=== PATIENT | female | born 1955 | race Caucasian/White ===

== ENCOUNTER → 2017-12-25 | Outpatient (CLI) | payer BC ==
[~2017-12-25] MED LIST: ASPIRIN EC81 M1 PO; COLESTIPOL HCL1 G1 PO; DARIFENACIN ER15 MG PO; ESTRACE2 MG PO; LEXAPRO20 MG PO; MACROBID 100 M100 M1 PO; PROZAC20 MG PO; SIMVASTATIN40 MG PO; VERAPAMIL ER240 M1 PO; VIMOVO 375-201 EACH PO; ZESTORETIC 20-1 EAC1 PO; [UNRECOGNIZED DRUG - OTHER] PO
--- NOTE | 2017-12-26 10:11 | PAINCON ---
[address] [address] PAIN MANAGEMENT CONSULTATION Name: THERESE RICO Room: [facility] OMID ChristianoAdam#: [id number] Admission: 12/25/17 Attend Phys: Marino Chung MD Discharge: Date of : 51 Report #: [id number] THIS REPORT FOR: //name// CC: Donna Chung DATE OF SERVICE: 12/25/2017 FOLLOWUP COMPLAINT: Pain in the left hip and buttocks area. FOLLOWUP HISTORY: The patient is a 62-year-old female, who has been referred to the pain clinic because of pain and discomfort, which has been problematic for a number of months. She is experiencing pain, which radiates down into her left hip and buttocks area. She has had some chronic pain in the low back for greater than 10 years. She recently fell and landed on her buttocks. She noticed that her pain started to become more problematic after this episode. She notes that her pain starts in the morning and can start as 1-2, but by the end of the day it can be quite problematic as it escalates during the course of day. She had a fall in August 2017. She feels that that has exacerbated her pain and made it more problematic and difficult to engage in activities of daily living. She denies any back surgeries. She had physical therapy a number of years ago. Her insurance pays quite poorly at this juncture and she has not had physical therapy in a while. ALLERGIES: IODINE, PROTONIX, ADHESIVES. CURRENT MEDICATIONS: Voltaren 1% b.i.d., lisinopril/hydrochlorothiazide 20/25, darifenacin 15 mg, estradiol 2 mg verapamil 240 mg t.i.d., Colestid 1 gram by mouth t.i.d., escitalopram 20 mg, simvastatin 20 mg, methylprednisolone 4 mg daily, hydrocodone/Tylenol 5/325 q.4-6h. p.r.n. pain. PAST MEDICAL HISTORY: Hyperlipidemia, pacemaker, hypertension, and depression. PAST SURGICAL HISTORY: History of cholecystectomy was in 1980; pacemaker in 1999, 2006, and 2014; and hysterectomy 1985. SOCIAL HISTORY: The patient is not working at this juncture, has been off work for the last year. 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 REVIEW OF SYSTEMS: Questionnaire indicates generally good health, headaches, hearing loss, chronic problems with sinuses, nosebleeds, frequent diarrhea, and depression. PAIN CLINIC ASSESSMENT 1. The patient has not been treated for osteoarthritis [place] [address] PAIN MANAGEMENT CONSULTATION Name: THERESE RICO Room: [facility]#: [id number] Admission: 12/25/17 Attend Phys: Marino Chung MD Discharge: Date of : 51 Report #: [id number] 2. Height 5 feet 6 inches, weight 197 pounds, BMI is 31. 3. VITAL SIGNS: Blood pressure 134/74, heart rate 75, respiratory rate 16, room air saturation 96%, temperature 98.4. Pain intensity 3/10. 4. Fall risk. The patient has not fallen in the last 3 months. She does not need assistance with standing or walking. 5. The patient is not on blood thinners. 6. The patient is being treated for hypertension. 7. Opioid use greater than 6 weeks. The patient has not been receiving medications from us over the past 6 weeks. 8. Risk assessment tool. 9. Functional assessment tool. The patient's score 16/70 in the area of general activity, mood, walking ability, normal work, relationships with others, sleep, and enjoyment of life. 10. She denies use of tobacco at this juncture. 11. Denies drinking alcoholic beverages. PHYSICAL EXAMINATION: GENERAL: The patient is a well-developed white female. Slightly obese. Appearance: Appears stated age. Orientation: The patient is oriented x 3 with fluent speech and affect appears appropriate. HEENT: Head atraumatic. Eyes: Extraocular eye muscles intact. Hearing within normal limits. No nasal complaint, but history of sinus problems. NECK: Without adenopathy or bruits. No masses. LUNGS: Clear to auscultation, but somewhat distant. HEART: Regular rate with normal S1. ABDOMEN: Nontender without organomegaly. MUSCULOSKELETAL: Normal alignment without scoliosis, kyphosis, or lordosis. The patient walks without a significant antalgic gait. Lumbar flexion to 45 degrees, extension to 5 degrees. Left and right lateral rotation, left and right lateral bending were not very problematic. The patient does have an area in the left posterior superior iliac spine and pain radiating down into the left buttocks area. Deep tendon reflexes in the upper extremity has +2 for biceps, difficult to appreciate for brachioradialis and ulnar. The patient has some trigger points/tenderness at the L5-S1 left paraspinous area. Palpation in this area does cause some discomfort. Muscle strength is judged to be 5/5 for the major muscle groups of the upper extremity. Muscle strength in the lower extremities 5/5 for the major muscle groups. Deep tendon reflex at the knees are +2 bilaterally. Difficult to appreciate at the ankles. Anterior spring test was negative. Lateral compression of the pelvis was somewhat remarkable, the patient noted some increased discomfort in the area of the SI joint. Keon's sign indicated some soreness in the left SI joint, low back area. The patient is able to walk on her toes. She is able to walk on her heels. LABORATORY DATA: 1. Lumbar series dated 05/31/2017, reveals multilevel lumbar spondylosis. There are five non-weight bearing lumbar type vertebral bodies[place] [address] PAIN MANAGEMENT CONSULTATION Name: THERESE RIOC Room: [facility]#: [id number] Admission: 12/25/17 Attend Phys: Marino Chung MD Discharge: Date of : 53 Report #: [id number] heights are maintained. Disk spaces are well preserved. Slight anterolisthesis L4 on L5. Mild multilevel anterior osteophytes. No pars defects. There is a stable lobular sclerotic focus within the right ilium measuring 1.5 mm, likely a bone island. 2. Hip x-ray dated 05/31/2017, no acute fracture or dislocation. Hip joint spaces are well preserved. The sacrum and SI joints and pubic symphysis are normal. Multi-vascular phleboliths within the pelvis. Stable 1.5 cm sclerotic focus within the right ilium, likely a bone island. On 09/14/2017, radiologic exam negative left hip and pelvis. On 09/14/2017, sacrum and coccyx, three views, no sacral fracture identified. The sacral foraminal arcuate lines are maintained bilaterally. The SI joints are normal bilaterally. The focal sclerosis in the right medial iliac bone is most likely benign bone island. IMPRESSION: 1. Low back pain with some pain and discomfort directed in the area of the left SI joint. At some point tenderness over the right posterior superior iliac spine, the area of the gluteus pan, and posterior superior iliac spine area. 2. Hypertension. 3. Colon problems. 4. Emotional problems. 5. Joint disease/arthritis. 6. Pacemaker. RECOMMENDATIONS: We discussed treatment options with the patient. It appears that most of her pain and discomfort involves the area of the left posterior superior iliac spine area. Palpation in this area can reproduce pain and discomfort. Palpation also cause some discomfort and the patient emphasizes some discomfort in the area of the SI joint. At this juncture, we will have the patient return to the pain clinic at which time a SI joint injection will be performed. Risks and benefits of the procedure were discussed. The patient will continue with her current medications for hyperlipidemia, depression, and she will call us if she has any concerns that we did not discuss on the day of her visit. <ELECTRONICALLY SIGNED> By: Marino Chung MD 12/26/17 1011 1421 Farhad Chung MD /[facility]
== END ==
LOC: M.PC 05:22
DX: M16.12 Unilateral primary osteoarthritis, left hip (principal); E78.5 Hyperlipidemia, unspecified; I10 Essential (primary) hypertension; F32.9 Major depressive disorder, single episode, unspecified; F98.9 Unspecified behavioral and emotional disorders with onset usually occurring in childhood and adolescence; K63.89 Other specified diseases of intestine; Z90.49 Acquired absence of other specified parts of digestive tract; Z90.710 Acquired absence of both cervix and uterus; Z95.0 Presence of cardiac pacemaker

== ENCOUNTER → 2018-01-01 | Outpatient (CLI) | payer BC ==
--- NOTE | 2018-01-23 08:26 | PAINCON ---
[address] [address] PAIN MANAGEMENT CONSULTATION Name: THERESE RICO Room: [facility] OMID ChristianoAdam#: [id number] Admission: 01/01/18 Attend Phys: Marino Chung MD Discharge: Date of : 53 Report #: [id number] THIS REPORT FOR: //name// CC: Donna Chung DATE OF SERVICE: 01/01/2018 FOLLOWUP COMPLAINT: Here for the SI joint injection. FOLLOWUP HISTORY: The patient is a 62-year-old female who has been followed in the pain clinic because of chronic pain involving pain which is radiating down to her left hip and involving her buttocks. She has had pain and discomfort, which has been quite problematic over the last few months. Pain has been radiating down into her left hip as well as in the buttocks area. Certain movements exacerbate this pain. She has had some chronic pain in her low back for greater than 10 years. She fell and landed on her buttocks and felt that this pain has worsened since that fall. This was in 08/2017. This pain because of its discomfort makes engaging in activities of daily living more problematic. ALLERGIES: IODINE, PROTONIX, ADHESIVES. CURRENT MEDICATIONS: Reviewed are Voltaren 1% b.i.d. cream, lisinopril/hydrochlorothiazide 20/25, darifenacin 15 mg, estradiol 2 mg, verapamil 240 mg t.i.d., Colestid 1 gram by mouth t.i.d., escitalopram 20 mg, simvastatin 20 mg, methylprednisolone 4 mg daily, hydrocodone/Tylenol 5/325 q.4-6h. p.r.n. pain. PAIN CLINIC ASSESSMENT: 1. The patient has not been treated for osteoarthritis or rheumatoid arthritis. 2. VITAL SIGNS: Blood pressure 152/88, pulse 76, respiratory rate 16, room air saturation is 96%, temperature 98.5. 3. Height 5 feet 6 inches, weight 196 pounds, BMI is 30. 4. Fall risk. The patient has not fallen in the last 3 months. She does not need assistance with standing. 5. The patient is not on blood thinners. 6. The patient is being treated for hypertension appropriately. 7. Opioid use greater than 6 weeks. The patient is not receiving chronic opioid medication. 8. Risk assessment tool. 9. Functional assessment tool, patient scores 16/70 in the area of general activity, mood, walking, normal work, relationships with others, sleep and enjoyment of life. 10. The patient denies use of tobacco at this juncture. 11. [place] [address] PAIN MANAGEMENT CONSULTATION Name: THERESE RICO [id number] Admission: 01/01/18 Attend Phys: Marino Chung MD Discharge: Date of : 51 Report #: [id number] PHYSICAL EXAMINATION: GENERAL: The patient is a well-developed white female. Slightly obese. APPEARANCE: Appears stated age. Oriented x 3 with fluent speech. Affect appears appropriate. HEENT: Head is atraumatic. Eyes: Extraocular eye muscles intact. Hearing within normal limits. No nasal complaints. No history of sinus problems. NECK: Without adenopathy or bruits. No masses. LUNGS: Clear to auscultation, somewhat distant lung sounds. HEART: Regular rate, normal S1, S2. MUSCULOSKELETAL: Without significant changes since the patient was seen last week. Continues to have pain and discomfort in the left SI joint. Increased discomfort with dependent position of the left leg. Notes pain in the SI joint area. Keon's maneuver increased back pain and discomfort. IMPRESSION: 1. Low back pain, ongoing discomfort directed in the area of the left SI joint. The patient has some soreness and discomfort over the posterior superior iliac spine area. Discomfort in the area of the gluteus pan and posterior superior iliac spine area. 2. Hypertension. 3. Colon problems. 4. Emotional problems. 5. Joint disease/arthritis. 6. Pacemaker. RECOMMENDATIONS: We have discussed the treatment plan with the patient again. She has returned for treatment. Possible complication of the procedure, which could include infection, increased muscle soreness, bleeding, infection and worsening of pain were discussed. The patient elects to proceed. PROCEDURE NOTE: The patient was placed in the prone position. Her back was sterilely prepped with a Betadine solution. Fluoroscopy was used to identify the SI joint. AP visualization of the target area was noted. A 25-gauge needle was then infiltrated into the area to decrease the pain with 0.25% bupivacaine. A 20-gauge spinal needle was then advanced into the area of discomfort. A total of 80 mg Depo-Medrol and 5 mL of 0.5% bupivacaine was injected. The patient had no complications. A Band-Aid was placed in the area. The patient remained in the pain clinic for an appropriate amount of time. Pain decreased from 4-1 at the time of discharge. She will follow up in the future as needed. [address] [address] PAIN MANAGEMENT CONSULTATION Name: THERESE RIOC Room: [facility]#: [id number] Admission: 01/01/18 Attend Phys: Marino Chung MD Discharge: Date of : 53 Report #: [id number] We would like to thank you for letting us participate in her care. We hope she continues to improve. <ELECTRONICALLY SIGNED> By: Marino Chung MD 01/23/18 0826 1307 20Marino Chung MD /nt
== END | disposition home or self-care (01) ==
LOC: M.PC 01:30
DX: M53.3 Sacrococcygeal disorders, not elsewhere classified (principal); I10 Essential (primary) hypertension; K63.9 Disease of intestine, unspecified; R45.89 Other symptoms and signs involving emotional state; M19.90 Unspecified osteoarthritis, unspecified site; Z95.0 Presence of cardiac pacemaker; Z79.891 Long term (current) use of opiate analgesic; Z91.041 Radiographic dye allergy status; Z88.8 Allergy status to other drugs, medicaments and biological substances; Z79.899 Other long term (current) drug therapy

== ENCOUNTER → 2018-12-27 | Outpatient (CLI) | payer MEDICARE, OTHER | LOC: M.RAD 10:37 | DX: M25.78 Osteophyte, vertebrae (principal) ==

== ENCOUNTER → 2019-02-27 | Outpatient (CLI) | payer MEDICARE, OTHER | LOC: M.CT 13:38 | DX: Z12.31 Encounter for screening mammogram for malignant neoplasm of breast (principal); M47.812 Spondylosis without myelopathy or radiculopathy, cervical region; M48.02 Spinal stenosis, cervical region ==

== ENCOUNTER → 2019-03-13 | Outpatient (CLI) | payer MEDICARE, OTHER ==
[~2019-03-13] MED LIST changes: +ASPIR 8181 MG PO; +MULTIVITAMIN; +TROSPIUM CHLORI60 MG PO; +ZEGERID OTC 201 EACH PO
--- NOTE | ~2019-03-13 | PAINCON ---
[address] [address] PAIN MANAGEMENT CONSULTATION Name: THERESE RICO Room: [facility] Viktoria#: [id number] Admission: 03/13/19 Attend Phys: Marino Chung MD Discharge: Date of : 53 Report #: [id number] THIS REPORT FOR: //name// CC: Donna Chung DATE OF SERVICE: 03/13/2019 CHIEF COMPLAINT: Left sacroiliitis. HISTORY: The patient is a 63-year-old female, who has been seen in the past because of cervical radiculopathy. She has returned today with complaints of neck pain. She also has left hip pain. The neck pain is the item which is most problematic today. She started experiencing neck pain about a year ago. She has undergone physical therapy. She has tried chiropractic treatment. She has undergone Medrol Dosepak as well as muscle relaxants. She continues to have pain, which is problematic and radiates down into both shoulders. She notes some burning sensation in her arms at times. She rates her pain as a 4/10. She has used Tylenol to help with the pain. She has found use of medications, heat and stretching can be helpful. Overall activities of daily living exacerbate her pain. ALLERGIES: IODINE, PROTONIX, ADHESIVES. CURRENT MEDICATIONS: Colestipol 1 gram, Estrace 2 mg, Prozac 20 mg daily, Zestoretic 20/25 mg b.i.d., Zocor 40 mg, verapamil 240 mg, trospium 60 mg, aspirin 81 mg, ____ [id number], multivitamin. PAIN CLINIC ASSESSMENT AND PQRS: 1. The patient is not being treated for osteoarthritis or rheumatoid arthritis. 2. Height 5 feet 6 inches, weight 196 pounds, BMI is 31.7. 3. Vital signs: Blood pressure 133/84, heart rate is 80, respiratory rate 16, room air saturation is 96%, temperature 97.8. 4. Pain intensity: 10. 5. Fall history: The patient has not fallen in the last 3 months. 6. Blood thinner: The patient is not on a blood thinning medication. 7. Hypertension: The patient is being treated for hypertension. 8. Opioids greater than 6 weeks: The patient is not receiving opioid medication on a regular basis. 9. Risk assessment tool: Low for opioid use. 10. Functional assessment tool. 11. Recreational drug use: The patient denies use of recreational drugs. 12. Tobacco: The patient denies drinking alcoholic beverages on a regular basis. PHYSICAL EXAMINATION: [facility] [address] [place] [address] PAIN MANAGEMENT CONSULTATION Name: THERESE RICO Room: [facility]#: [id number] Admission: 03/13/19 Attend Phys: Marino Chung MD Discharge: Date of : 53 Report #: [id number] GENERAL: The patient is a well-developed, well-nourished, white female, slightly obese. She is alert and oriented x 3. Her affect is appropriate. Speech is fluent. HEENT: Normocephalic, atraumatic. Extraocular eye muscles intact. Sclerae nonicteric. Mucous membranes are moist. MUSCULOSKELETAL: Neck without adenopathy. The patient has some pain in the neck area. She has pain that is radiating down into her arms bilaterally, left and right. She has a burning sensation component in her arms at times. She has bilateral shoulder pain as well. The patient is without significant scoliosis, kyphosis or lordosis. History of low back pain with sacroiliac joint dysfunction is not problematic today. DIAGNOSTIC DATA: Radiographic findings dated 02/27/[address] indicate there are degenerative changes evident throughout the cervical spine with marked disk narrowing at C4-C5, C5-C6, and C6-C7. There is minimal degenerative retrolisthesis at C4-C5 and C5-C6. There is advanced left facet arthrosis at C7-T1. Slight degenerative anterolisthesis at C7-T1. No fractures are identified. Central spinal canal well maintained. No paraspinous soft tissue abnormalities. IMPRESSION: 1. Cervical radiculopathy. 2. History of lumbar radicular pain with sacroiliac dysfunction. 3. Hypertension. 4. Colon problems. 5. Emotional problems. 6. Joint disease/arthritis. 7. Pacemaker. RECOMMENDATIONS: We discussed treatment options with the patient. Risks and benefits of an epidural steroid injection in the cervical area were discussed. Possible complications of the procedure, which could include but are not limited to infection, worsening of pain, no improvement of pain, and the patient elects to proceed. PROCEDURE NOTE: The patient was taken to the procedure area. She was assisted in getting on the examination table. A pillow was placed under her chest to promote easier access. Her neck was sterilely prepped with betadine solution. 0.25% bupivacaine was infiltrated at the C7-T1 interspace. This area had been sterilely prepped with betadine and allowed to dry. A 23-gauge needle was used to numb the area. A 17-gauge Tuohy with loss of resistance technique was used to gain access to the epidural space. There was no CSF, heme or paresthesia. A total of 120 mg triamcinolone was injected. The patient tolerated the procedure well. She remained in the Pain Clinic for an appropriate amount of time. She will follow up in [place] [address] PAIN MANAGEMENT CONSULTATION Name: THERESE RICO Room: [facility]#: [id number] Admission: 03/13/19 Attend Phys: Marino Chung MD Discharge: Date of : 53 Report #: [id number] We would like to thank you for letting us participate in her care. We hope she continues to improve. By: [id number]. Melvin Chung MD /nt
== END | disposition home or self-care (01) ==
LOC: M.PC 04:20
DX: M54.12 Radiculopathy, cervical region (principal); G89.29 Other chronic pain; M25.552 Pain in left hip; I10 Essential (primary) hypertension; M19.90 Unspecified osteoarthritis, unspecified site; K92.9 Disease of digestive system, unspecified; F98.9 Unspecified behavioral and emotional disorders with onset usually occurring in childhood and adolescence; Z95.0 Presence of cardiac pacemaker; Z91.041 Radiographic dye allergy status; Z88.8 Allergy status to other drugs, medicaments and biological substances; Z79.82 Long term (current) use of aspirin; Z79.899 Other long term (current) drug therapy; Z98.890 Other specified postprocedural states

== ENCOUNTER → 2019-05-29 | Outpatient (CLI) | payer MEDICARE, OTHER ==
[~2019-05-29] MED LIST changes: +ESTRACE0.5 MG PO; -ESTRACE2 MG PO; +TYLENOL325 MG PO
--- NOTE | ~2019-05-29 | PAINCON ---
[address] [address] PAIN MANAGEMENT CONSULTATION Name: THERESE RICO Room: [facility] RIGOBERTO Blum#: [id number] Admission: 05/29/19 Attend Phys: Marino Chung MD Discharge: Date of : 53 Report #: [id number] THIS REPORT FOR: //name// CC: Donna Chung DATE OF SERVICE: 05/29/2019 CHIEF COMPLAINT: The epidural injection was helpful. I am not having some Return of pain in the neck and has some discomfort down into both arms. HISTORY: The patient is a 63-year-old female who has been followed in the pain clinic. She has been plagued with cervical radiculopathy. She has undergone epidural steroid injections in the cervical area. She has gleaned benefits from these. She returned today indicating that she is having some worsening of her pain. She rates her pain as a 3 at this point. She has recently "iced it down and taking the Tylenol. Notes that by evening, her pain increases from 3-6. She feels that another injection would be helpful. As you may recall, she has undergone physical therapy. She has tried chiropractic treatments. She has been stressed at this juncture. Her has been hospitalized. She has had a knee replacement. Has had problems with pulmonary embolus. She is being treated for prostate problems and evaluate for possible prostate cancer. Overall, things are stressful. She would like to proceed with a cervical epidural steroid injection today. ALLERGIES: IODINE, PROTONIX, ADHESIVES. CURRENT MEDICATIONS: Colestipol 1 gram, Estrace 2 grams, Prozac 20 mg, Zestoretic 20/25 mg b.i.d., Zocor 40 mg, verapamil 240 mg, trospium 60 mg, aspirin 81 mg, and multivitamins. PAIN CLINIC ASSESSMENT/PQRS: 1. The patient is not being treated for osteoarthritis or rheumatoid arthritis. 2. Height 5 feet 6 inches, weight 197 pounds, BMI is 31. 3. Vital Signs: Blood pressure 128/63, heart rate 86, respiratory rate 16, room air saturation is 96%, and temperature 97.9. 4. Pain intensity score 3/10. 5. Fall history: The patient has not fallen in the last 3 months. 6. Blood thinner. The patient is not on a blood thinning medication. 7. Hypertension. The patient is being treated for hypertension. 8. Opioids greater than 6 weeks. The patient is not receiving opioid medications on a regular basis. 9. Risk assessment tool, low for opioid use. 10. Functional assessment tool. 11. Recreational drug use. The patient denies use of recreational drugs. 12. Tobacco: The patient denies drinking alcoholic beverage on a regular [facility] [address] [place] [address] PAIN MANAGEMENT CONSULTATION Name: THERESE RICO Room: [facility]#: [id number] Admission: 05/29/19 Attend Phys: Marino Chung MD Discharge: Date of : 53 Report #: [id number] basis. PHYSICAL EXAMINATION: GENERAL: The patient is a well-developed, well-nourished white female. Appears her stated age. She is slightly obese. She is alert and oriented x 3. Her affect is appropriate. Speech is fluent. HEENT: Normocephalic, atraumatic. Extraocular eye muscles intact. Sclerae nonicteric. Mucous membranes are moist. NECK: Without adenopathy or JVD. The patient has some pain in her neck with radiation down into her arms. Continues to have a stabbing sensation in the posterior portion of her neck as well as her head with and some arm weakness. The patient is without significant scoliosis, kyphosis or lordosis. Has a history of sacroiliac joint dysfunction, stable today. IMPRESSION: 1. Cervical radiculopathy. 2. History of lumbar radiculopathy with sacroiliac joint dysfunction. 3. Hypertension. 4. Colon problems. 5. Emotional problems. 6. Joint disease/arthritis. 7. Pacemaker placement greater than 7 years. RECOMMENDATIONS: We discussed treatment options with the patient. Risks and benefits of a cervical epidural steroid injection were again discussed. They include but are not limited to infection, worsening of pain, no improvement in pain, nerve trauma, spinal headache and the patient elects to proceed. PROCEDURE NOTE: The patient was taken to the procedure area. She was then assisted in getting on the examination table. Her back was sterilely prepped with a Betadine solution. At C7/T1 0.25% bupivacaine was infiltrated. A 17-gauge Tuohy with loss of resistance technique was then used to gain access to the epidural space. There was no CSF, heme or paresthesia. Total of 120 mg triamcinolone was injected. The patient tolerated the procedure well. She remained in the Pain Clinic for an appropriate amount of time. She will follow up in the future. She is somewhat burdened by the situation of her . States that she told him to go to the hospital. He declined. He was told after going to the hospital had he tried to wait another day, he may have . He is in the hospital and she continues to nurture him. We would like to thank you for letting us participate in her care. We hope she continues to improve. By: [id number]. Melvin Chung MD /[facility]
== END | disposition home or self-care (01) ==
LOC: M.PC 05:08
DX: M54.12 Radiculopathy, cervical region (principal); G89.29 Other chronic pain; M54.16 Radiculopathy, lumbar region; M53.3 Sacrococcygeal disorders, not elsewhere classified; I10 Essential (primary) hypertension; M19.90 Unspecified osteoarthritis, unspecified site; Z95.0 Presence of cardiac pacemaker; Z87.19 Personal history of other diseases of the digestive system; Z79.899 Other long term (current) drug therapy; Z91.041 Radiographic dye allergy status; Z88.8 Allergy status to other drugs, medicaments and biological substances; Z79.82 Long term (current) use of aspirin; Z96.659 Presence of unspecified artificial knee joint; Z86.711 Personal history of pulmonary embolism; Z79.01 Long term (current) use of anticoagulants

== ENCOUNTER 2019-09-17 18:12 | Emergency (ER) | payer MEDICARE, OTHER ==
[~2019-09-17] VITALS: Ht 170.2 cm; Wt 88.5 kg
[2019-09-17] MEDS ORDERED: WELLBUTRIN XL300 MG PO (18:23)
[2019-09-17 18:57] LABS: HEMATOCRIT 40.8 % (37.0-47.0); MCV 85.5 fL (80.0-100.0); MPV 8.1 fl. (7.2-11.1); NUCLEATED RBCS 0 /100WBC
[2019-09-17 18:59] LABS: ABSOLUTE EOSINOPHILS 0.1 thou/uL (0.0-0.7); ABSOLUTE LYMPHOCYTES 2.7 thou/uL (0.8-5.3); ABSOLUTE MONOCYTES 0.5 thou/uL (0.0-1.2); ABSOLUTE NEUTROPHILS 5.5 thou/uL (1.6-8.1); BASOPHILS 0.2 %; EOSINOPHILS 1.4 %; LYMPHOCYTES 30.7 %; MCH 29.3 pg (26.0-34.0); MCHC 34.3 g/dL (28.0-37.0); MONOCYTES 5.9 %; PLATELET COUNT* 320 thou/uL (150-400); POLYS 61.8 %; RBC 4.77 mil/uL (4.20-5.00); RDW-CV 13.6 % (10.5-14.5); WBC 8.9 thou/uL (4.0-11.0)
[2019-09-17 19:06] LABS: CALCIUM 9.2 mg/dL (8.5-10.1); CREATININE 0.9 mg/dL (0.6-1.3); POTASSIUM 3.2 mmol/L (3.5-5.1)
[2019-09-17 19:11] LABS: ALBUMIN 3.7 g/dL (3.4-5.0); TOTAL BILIRUBIN 0.4 mg/dL (<0.1-1.0); TOTAL PROTEIN 7.2 g/dL (6.4-8.2)
[2019-09-17 20:58] VITALS: BP 140/65
--- NOTE | 2019-09-18 11:21 | EKG ---
[place] [address] ELECTROCARDIOGRAM REPORT Name: THERESE RICO Room: [facility]#: [id number] Admission: 09/17/19 Attend Phys: Discharge: 09/17/19 Date of : 51 Report #: [id number] THIS REPORT FOR: //name// [facility] ED Test Date: 2019-09-17 Test Time: 18:52:50 Pat Name: THERESE RICO Department: Room: Gender: F [employer] P[employer]: CATIA : [id number] Requested By: Madelyn Odonnell Order Number: [id number] MD: Tacos Paige Measurements Intervals Diagonal Rate: 70 P: 52 MI: 178 QRS: 62 QRSD: 99 T: 46 QT: 440 QTc: 475 Interpretive Statements Sinus rhythm Minimal ST depression, anterolateral leads Compared to ECG 05/04/2010 10:32:18 ST (T wave) deviation now present Atrial-paced complex(es) or rhythm no longer present T-wave abnormality no longer present Electronically Signed On 09-18-2019 11:21:35 CDT by Tacos Paige [email or web address] <ELECTRONICALLY SIGNED> By: Tacos Paige MD, FACC 09/18/19 1121 51 51 Tacos Paige MD, FACC /EPI
== END 2019-09-17 20:59 | disposition home or self-care (01) ==
LOC: M.ERS 18:12
PROVIDERS: Personal Emergency Response Attendant
DX: I10 Essential (primary) hypertension (principal); E78.5 Hyperlipidemia, unspecified; Z88.8 Allergy status to other drugs, medicaments and biological substances; Z90.49 Acquired absence of other specified parts of digestive tract; Z90.710 Acquired absence of both cervix and uterus; Z91.041 Radiographic dye allergy status

== ENCOUNTER → 2020-06-01 | Outpatient (CLI) | payer MEDICARE, OTHER ==
[~2020-06-01] MED LIST changes: +WELLBUTRIN XL300 MG PO
== END ==
LOC: M.RAD 12:38
PROVIDERS: ATTEND Family Medicine
DX: Z12.31 Encounter for screening mammogram for malignant neoplasm of breast (principal)

== ENCOUNTER → 2021-08-23 | Outpatient (CLI) | payer MEDICARE | LOC: M.RAD 11:09 | PROVIDERS: ATTEND Family Medicine | DX: Z12.31 Encounter for screening mammogram for malignant neoplasm of breast (principal); N95.1 Menopausal and female climacteric states; M85.88 Other specified disorders of bone density and structure, other site; M81.0 Age-related osteoporosis without current pathological fracture ==